=== PATIENT | male | born 1975 | race African-American/Black ===

== ENCOUNTER 2022-12-28 02:00 | Emergency (ER) | payer OTHER ==
[~2022-12-28] VITALS: Ht 175.3 cm; Wt 90.7 kg
[2022-12-28 02:01] VITALS: BP 152/85; PULSE 66; RESP 16; TEMP 97.4; O2SAT 99
[2022-12-28 04:20] LABS: ANION GAP 7.9 (8-16); CALCIUM 8.2 mg/dL (8.5-10.1); CARBON DIOXIDE 31.2 mmol/L (21-32); POTASSIUM 3.1 mmol/L (3.5-5.1)
[2022-12-28] MEDS ORDERED: POTASSIUM CHLORIDE 10 MEQ TABER PO ONE (04:55)
== END 2022-12-28 07:12 | disposition home or self-care (01) ==
LOC: MED 02:00
DX: R07.9 Chest pain, unspecified (principal); N18.9 Chronic kidney disease, unspecified; F12.90 Cannabis use, unspecified, uncomplicated; J44.9 Chronic obstructive pulmonary disease, unspecified; Z79.899 Other long term (current) drug therapy
CPT/HCPCS: 36415; 80048; 82948; 84484; 93005; 99284

== ENCOUNTER 2022-12-29 02:15 | Emergency (ER) | payer OTHER ==
[~2022-12-29] VITALS: Ht 175.3 cm; Wt 106.6 kg
[2022-12-29 02:15] VITALS: BP 149/79; PULSE 72; RESP 16; TEMP 97.9; O2SAT 99
== END 2022-12-29 03:33 ==
LOC: MED 02:15
DX: I10 Essential (primary) hypertension (principal); Z79.899 Other long term (current) drug therapy
CPT/HCPCS: 99283